=== PATIENT | male | born 1965 | race Caucasian/White ===

== ENCOUNTER 2019-03-13 21:18 | Emergency (ER) | payer OTHER ==
[2019-03-13] MEDS: Aspirin 81 MG Tab.Chew PO ONE (21:30)
--- NOTE | 2019-03-13 22:23 | EDM.PDOC ---
ED HPI GENERAL MEDICAL PROBLEM - General Chief Complaint: Chest Pain Stated Complaint: CHEST PAIN Time Seen by Provider: 03/13/19 22:01 Source of Information: Reports: Patient History Limitations: Reports: No Limitations - History of Present Illness INITIAL COMMENTS - FREE TEXT/NARRATIVE: James is a 53 year old male who presents to the ED with c/o left sided anterior chest pain radiating to his shoulder. He reports pain has been on and off for the past few days. He reports it is not a constant pain, but only occurs when he takes a deep breath. Occasionally has an aching pain to the area as well. He does report he does do a lot of lifting at work. He is in the area from [place] working in the area. He denies any shortness of breath, dizziness, cough, abdominal pain, vomiting, diarrhea, fevers. Does report yesterday he was a little bit nauseated. Otherwise has no symptoms. He reports his recommended he come be evaluated. He is a type I diabetic. 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 Denies any other significant PMH. No cardiac history. Reports his blood pressure is normally well controlled. He does admit his new job is more stressful. Duration: Intermittent Location: Reports: Chest, Upper Extremity, Left, Radiates to Quality: Reports: Ache Severity: Mild Worsens with: Reports: Breathing Associated Symptoms: Reports: No Other Symptoms, Chest Pain. Denies: Confusion , Cough, cough w sputum, Diaphoresis, Fever/Chills, Headaches, Loss of Appetite , Malaise, Nausea/Vomiting, Rash, Seizure, Shortness of Breath, Syncope, Weakness Left Upper Chest Pain Score (Numeric/FACES): 2 - Related Data Allergies Allergy/AdvReac Type Severity Reaction Status Date / Time No Known Allergies Allergy Verified 03/13/19 21:54 Home Meds: Home Meds Insulin Aspart [NovoLOG] 0 unit WITHMEALSANDBED 03/13/19 [History] Insulin Glargine,Hum.Rec.Anlog [Lantus Solostar] 15 unit SQ BID 03/13/19 [ History] Pantoprazole Sodium [Protonix] 40 mg PO DAILY 03/13/19 [History] Tacrolimus [Prograf] 1 mg PO BID 03/13/19 [History] Venlafaxine HCl [Venlafaxine ER] 37.5 mg PO DAILY 03/13/19 [History] Past Medical History Gastrointestinal History: Reports: GERD Psychiatric History: Reports: Depression Endocrine/Metabolic History: Reports: Diabetes, Type I Oncologic (Cancer) History: Reports: Other (See Below) Other Oncologic History: 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 ED EXAM, GENERAL - Physical Exam Exam: See Below Exam Limited By: No Limitations General Appearance: Alert, WD/WN, No Apparent Distress Eye Exam: Bilateral Eye: EOMI, Normal Fundi, Normal Inspection, PERRL Head: Atraumatic, Normocephalic Neck: Normal Inspection, Supple, Non-Tender, Full Range of Motion Respiratory/Chest: No Respiratory Distress, Lungs Clear, Normal Breath Sounds, No Accessory Muscle Use, Chest Non-Tender Cardiovascular: Normal Peripheral Pulses, Regular Rate, Rhythm, No Edema, No Gallop, No JVD, No Murmur, No Rub Peripheral Pulses: 2+: Radial (L), Radial (R), Dorsalis Pedis (L), Dorsalis Pedis (R) GI/Abdominal: Normal Bowel Sounds, Soft, Non-Tender, No Organomegaly, No Distention, No Abnormal Bruit, No Mass Back Exam: Normal Inspection, Full Range of Motion, NT Extremities: Normal Inspection, Normal Range of Motion, Non-Tender, Normal Capillary Refill, No Pedal Edema Neurological: Alert, Oriented, CN II-XII Intact, Normal Cognition, Normal Reflexes, No Motor/Sensory Deficits Psychiatric: Normal Affect, Normal Mood Skin Exam: Warm, Dry, Intact, Normal Color, No Rash Lymphatic: No Adenopathy Course - Vital Signs Last Recorded V/S: Last Vital Signs Temp 98.2 F 03/13/19 22:05 Pulse 89 03/13/19 22:20 Resp 16 03/13/19 22:20 BP 158/103 H 03/13/19 22:20 Pulse Ox 99 03/13/19 22:20 - Orders/Labs/Meds Orders: Active Orders 24 hr Category Date Time Status EKG Documentation Completion [RC] STAT Care 03/13/19 21:25 Active CXR [Chest 2V] [CR] Stat Exams 03/13/19 21:38 Taken Labs: Laboratory Tests 03/13/19 03/13/19 03/13/19 Range/Units 22:00 22:00 22:00 WBC 5.2 (5.0-10.0) 10^3/uL RBC 4.84 (4.50-6.00) 10^6/uL Hgb 12.7 L (14.0-18.0) g/dL Hct 38.6 L (40.0-54.0) % MCV 79.8 L (82.0-94.0) fL MCH 26.2 L (27.0-32.0) pg MCHC 32.9 L (33.0-38.0) g/dL RDW Coeff of Rosetta 16.0 H (11.0-15.0) % Plt Count 171 (150-400) 10^3/uL Neut % (Auto) 55.6 (35-85) % Lymph % (Auto) 25.5 (10-55) % Mcpherson % (Auto) 17.2 H (0-16) % Eos % (Auto) 1.3 (0-5) % Baso % (Auto) 0.4 (0-3) % Neut # (Auto) 2.90 (1.80-7.00) 10^3/uL Lymph # (Auto) 1.33 (1.00-4.80) 10^3/uL Mcpherson # (Auto) 0.90 H (0.00-0.80) 10^3/uL Eos # (Auto) 0.07 (0.00-0.45) 10^3/uL Baso # (Auto) 0.02 10^3/uL PT 11.8 (9.7-12.3) SEC INR 1.16 (0.92-1.18) APTT 26.2 (23.2-32.3) SEC D-Dimer, Quantitative 0.20 (0.00-0.50) Sodium 140 (136-145) mEq/L Potassium 3.8 (3.5-5.0) mEq/L Chloride 102 (98-106) mEq/L Carbon Dioxide 28 (21-32) mmol/L BUN 28 H (7-18) mg/dL Creatinine 1.3 (0.7-1.3) mg/dL Est Cr Clr Drug Dosing 62.54 mL/min Estimated GFR (MDRD) 58 L (>=60) mL/min Glucose 86 (75-99) mg/dL Calcium 8.9 (8.4-10.1) mg/dL Lactate Dehydrogenase 208 H (100-190) U/L Creatine Kinase 208 (35-232) U/L Troponin I < 0.017 (0.00-0.06) ng/mL Meds: Medications Discontinued Medications Generic Name Dose Route Start Last Admin Trade Name Freq PRN Reason Stop Dose Admin Aspirin 324 mg 03/13/19 21:30 03/13/19 21:30 Aspirin PO 03/13/19 21:31 324 mg ONETIME ONE Administration Lisinopril 10 mg 03/13/19 22:28 Prinivil PO 03/13/19 22:29 ONETIME ONE - Re-Assessments/Exams Free Text/Narrative Re-Assessment/Exam: Labs, chest xray, and EKG all negative. Discussed differentials for patient's symptoms. Discussed that BP has continued to be elevated in ED. Do recommend starting antihypertensive therapy. Departure - Departure Time of Disposition: 22:34 Disposition: Home, Self-Care 01 Condition: Good Clinical Impression: Acute costochondritis Hypertension Qualifiers: Hypertension type: unspecified Qualified Code(s): I10 - Essential (primary) hypertension Instructions: Costochondritis, [id number] Forms: ED Department Discharge Additional Instructions: - Activity as tolerated - Ice affected area as needed - Tylenol or ibuprofen as needed for pain/discomfort - Recommend starting Lisinopril daily for blood pressure. Script can be picked up at [facility] in [place] tomorrow. - Follow up with PCP for recheck when return home - Return to ED for any emergent needs - My Orders Last 24 Hours: My Active Orders 03/13/19 21:25 EKG Documentation Completion [RC] STAT 03/13/19 21:38 CXR [Chest 2V] [CR] Stat - Assessment/Plan Last 24 Hours: My Active Orders 03/13/19 21:25 EKG Documentation Completion [RC] STAT 03/13/19 21:38 CXR [Chest 2V] [CR] Stat
[2019-03-13 22:26] LABS: CHLORIDE,CL 102 mEq/L (98-106); SODIUM,NA 140 mEq/L (136-145)
[2019-03-13] MEDS: Lisinopril 10 MG Tab PO ONE (22:44)
== END 2019-03-13 22:50 | disposition home or self-care (01) ==
LOC: CC.ED 21:18
DX: M94.0 Chondrocostal junction syndrome [Tietze] (principal); E10.9 Type 1 diabetes mellitus without complications; K21.9 Gastro-esophageal reflux disease without esophagitis; Z79.4 Long term (current) use of insulin
CPT/HCPCS: 36415; 71046; 80048; 82550; 83615; 84484; 85025; 85379; 85610; 85730; 93005; 99285-25; A9270-GY